=== PATIENT | female | born 1965 | race Caucasian/White ===

== ENCOUNTER 2020-05-08 08:36 | Emergency (ER) | payer OTHER ==
[2020-05-08] MEDS ORDERED: FAMOTIDINE 20 MG/2 ML VIAL IV ONE (09:57)
[2020-05-08] MEDS ORDERED: NA CHLORIDE 0.9% 1,000 ML ONE (09:57)
[2020-05-08] MEDS ORDERED: ONDANSETRON 4 MG/2 ML VIAL ONE (09:57)
[2020-05-08] MEDS ORDERED: MORPHINE 4 MG/ML SYR ONE (09:57)
[2020-05-08 10:08] LABS: Urine Blood 2+ (NEG); Urine Glucose NEGATIVE (NEG); Urine Protein TRACE (NEG); Urine pH 6.5 (5.0-7.0)
[2020-05-08 10:15] LABS: Absolute Lymphocytes (CBC) 1.8 K/uL (0.7-4.9); Hematocrit 43.1 % (36.0-45.0); MPV 8.4 fL (7.6-11.3); Protime INR 1.05; RBC Red Blood Cell Count 4.55 M/uL (3.86-4.86)
[2020-05-08 10:31] LABS: ALT/SGPT 14 U/L (12-78); AST/SGOT 22 U/L (15-37); Alkaline Phosphatase 86 U/L (45-117); BUN Blood Urea Nitrogen 13 mg/dL (7-18); Bicarbonate 28 mmol/L (21-32); Bilirubin Direct 0.3 mg/dL (0-0.2); Bilirubin Total 0.9 mg/dL (0.2-1.0); Glucose Level 106 mg/dL (74-106); Lipase 79 U/L (73-393); Magnesium 2.4 mg/dL (1.8-2.4); NT PRO-BNP 1769 pg/mL (<125); Potassium 3.3 mmol/L (3.5-5.1); Protein, Total 8.3 g/dL (6.4-8.2); Sodium Level 138 mmol/L (136-145); Troponin (Emerg Dept Use Only) < 0.02 ng/mL (0.0-0.045)
[2020-05-08] MEDS ORDERED: PROMETHAZINE INJ 25 MG/ML AMP ONE (10:42)
[2020-05-08] MEDS ORDERED: HYDROMORPHONE HCL 1 MG/ML INJ ONE (10:42)
--- NOTE | 2020-05-08 11:22 | RAD REPORT ---
EXAM DESCRIPTION: RAD - Chest Single View - 05/08/2020 10:14 am CLINICAL HISTORY: Cough;Abdominal distention COMPARISON: November 2015 chest exam TECHNIQUE: AP portable chest image was obtained 05/08/2020 10:14 am . FINDINGS: Lungs are clear. Interstitial markings match comparison Heart and vasculature are normal. No measurable pleural effusion and no pneumothorax. No acute bony abnormality seen. No acute aortic f indings suspected. IMPRESSION: No acute cardiopulmonary process. No significant change from comparison study.
--- NOTE | 2020-05-08 12:18 | RAD REPORT ---
EXAM DESCRIPTION: CT - Abdomen Pelvis W Contrast - 05/08/2020 12:01 pm CLINICAL HISTORY: ABD PAIN, vomiting COMPARISON: Abdomen Pelvis W Contrast dated 11/11/2015 TECHNIQUE: Biphasic, helical CT imaging of the abdomen and pelvis was performed following 100 ml non -ionic IV contrast. Oral contrast was administered. . All CT scans are performed using dose optimization technique as appropriate and may include automated exposure control or mA/KV adjustment according to patient size. FINDINGS: No suspicious findings in the lung bases. No focal hepatic parenchymal lesions. Doppler evaluation shows normal portal blood flow pattern. Ther e is nodular contour to the liver capsule. Trace amount of free fluid is present adjacent to the live r capsule with minimal fluid in the dependent portion of the pelvis. A few small varices are seen in the upper abdomen. No splenomegaly or focal splenic finding. No pancreatic abnormality. Gallbladder i s absent. Biliary tree within normal limits. Symmetric renal function is seen with no hydronephrosis or suspicious renal mass. No pyelonephritis o r acute parenchymal process. No bladder abnormalities. No adrenal abnormalities. No uterine abnormali ty. Ovaries are not clearly defined, isodense to the adjacent unopacified bowel. No gastric dilatation or gastric wall thickening. No dilated small bowel loops. No direct or indirect evidence for appendicitis. Green of the colon are mildly prominent. This is probably artifact of a d ecompressed state. A minimal colitis or enteritis would be possible. No free air or pneumatosis. No mass or bulky lymphadenopathy. No omental thickening. Patient has a right size supraumbilical hernia. Neck is 2 cm in diameter. Hernia is approximately 4-5 cm in maximu m diameter. This has enlarged since 2016. Prominent disc and bone degenerative changes are present. Anterior subluxation of L4 on L5 noted seco ndary to severe facet joint degenerative change. This creates bulging of disc material in the central canal. Bilateral foraminal stenosis present. IMPRESSION: Cirrhotic liver changes are present with no focal liver lesion. Minimal ascites present with upper abdominal varices present mild in severity. No surgically emergent abdomen or pelvis finding. No direct or indirect evidence for appendicitis. Green of the decompressed colon are mildly prominent. A mild nonspecific colitis cannot be excluded.
[2020-05-08 12:26] LABS: Barbiturates NEGATIVE (NEGATIVE); Benzodiazepines NEGATIVE (NEGATIVE); Cocaine NEGATIVE (NEGATIVE); METHAMPHETAM NEGATIVE (NEGATIVE); Methadone NEGATIVE (NEGATIVE); Opiates POSITIVE (NEGATIVE); Phencyclidine NEGATIVE (NEGATIVE); THC Cannibis NEGATIVE (NEGATIVE)
--- NOTE | 2020-05-08 13:11 | EDPHYS ---
Physician Documentation [facility] Name: Demetri Mock Age: 55 yrs Sex: Female : 1965 Arrival Date: 05/08/2020 Time: 08:38 Bed 17 Private MD: Clay Marrero ED Physician Fransisco Mathew HPI: 05/08 09:39 This 55 yrs old Female presents to ER via Wheelchair with complaints of diane Abdominal Pain, Liver Problem. 09:39 The patient presents with abdominal pain in the lower abdomen. Onset: The diane symptoms/episode began/occurred 2 day(s) ago. The patient presents to the emergency department with diarrhea, that is continuous, abdominal pain, of the right lower quadrant and left lower quadrant. Onset: The symptoms/episode began/occurred 2 day(s) ago. Possible causes: unknown. The symptoms are aggravated by nothing. The symptoms are alleviated by nothing. Associated signs and symptoms: Pertinent positives: fever. The symptoms do not radiate. Modifying factors: The symptoms are alleviated by nothing, the symptoms are aggravated by movement, pressure. Historical: - Allergies: 08:45 PENICILLINS; aa5 08:45 Latex, Natural Rubber; aa5 08:45 Lisinopril; aa5 - PMHx: 08:45 Anxiety; Chronic pain; COPD; Depression; Hypertension; Cirrhosis; aa5 - PSHx: 08:45 Cholecystectomy; aa5 - Immunization history:: Adult Immunizations up to date. - Social history:: Smoking status: Patient reports the use of cigarette tobacco products, unknown amount. - Family history:: not pertinent. ROS: 09:39 Constitutional: Negative for fever, chills, and weight loss, Eyes: Negative for injury, diane pain, redness, and discharge, ENT: Negative for injury, pain, and discharge, Neck: Negative for injury, pain, and swelling, Cardiovascular: Negative for chest pain, palpitations, and edema, Respiratory: Negative for shortness of breath, cough, wheezing, and pleuritic chest pain, Back: Negative for injury and pain, : Negative for injury, bleeding, discharge, and swelling, MS/Extremity: Negative for injury and deformity, Skin: Negative for injury, rash, and discoloration, Neuro: Negative for headache, weakness, numbness, tingling, and seizure, Psych: Negative for depression, anxiety, suicide ideation, homicidal ideation, and hallucinations, Allergy/Immunology: Negative for hives, rash, and allergies, Endocrine: Negative for neck swelling, polydipsia, polyuria, polyphagia, and marked weight changes, Hematologic/Lymphatic: Negative for swollen nodes, abnormal bleeding, and unusual bruising. 09:39 Abdomen/GI: Positive for abdominal pain, diarrhea, of the right lower quadrant and left lower quadrant. Exam: 09:39 Constitutional: This is a well developed, well nourished patient who is awake, alert, diane and in no acute distress. Head/Face: Normocephalic, atraumatic. Eyes: Pupils equal round and reactive to light, extra-ocular motions intact. Lids and lashes normal. Conjunctiva and sclera are non-icteric and not injected. Cornea within normal limits. Periorbital areas with no swelling, redness, or edema. ENT: Nares patent. No nasal discharge, no septal abnormalities noted. Tympanic membranes are normal and external auditory canals are clear. Oropharynx with no redness, swelling, or masses, exudates, or evidence of obstruction, uvula midline. Mucous membranes moist. Neck: Trachea midline, no thyromegaly or masses palpated, and no cervical lymphadenopathy. Supple, full range of motion without nuchal rigidity, or vertebral point tenderness. No Meningismus. Chest/axilla: Normal chest wall appearance and motion. Nontender with no deformity. No lesions are appreciated. Cardiovascular: Regular rate and rhythm with a normal S1 and S2. No gallops, murmurs, or rubs. Normal PMI, no JVD. No pulse deficits. Respiratory: Lungs have equal breath sounds bilaterally, clear to auscultation and percussion. No rales, rhonchi or wheezes noted. No increased work of breathing, no retractions or nasal flaring. Back: No spinal tenderness. No costovertebral tenderness. Full range of motion. Female : Normal external genitalia. Skin: Warm, dry with normal turgor. Normal color with no rashes, no lesions, and no evidence of cellulitis. MS/ Extremity: Pulses equal, no cyanosis. Neurovascular intact. Full, normal range of motion. Neuro: Awake and alert, GCS 15, oriented to person, place, time, and situation. Cranial nerves II-XII grossly intact. Motor strength 5/5 in all extremities. Sensory grossly intact. Cerebellar exam normal. Normal gait. Psych: Awake, alert, with orientation to person, place and time. Behavior, mood, and affect are within normal limits. 09:39 Abdomen/GI: Inspection: abdomen appears normal, Bowel sounds: normal, Palpation: mild abdominal tenderness, in the right lower quadrant and left lower quadrant, Liver: no appreciated palpable abnormalities, Hernia: not appreciated. Vital Signs: 08:45 BP 140 / 76; Pulse 60; Resp 16 S; Temp 98.6(O); Pulse Ox 99% on R/A; Weight 77.11 kg aa5 (R); Height 5 ft. 9 in. (175.26 cm) (R); Pain 8/10; 10:00 BP 134 / 95; Pulse 64; Resp 16; Pulse Ox 96% ; bp 11:00 BP 113 / 72; Pulse 58; Resp 15; Pulse Ox 97% ; zb 12:00 BP 103 / 66; Pulse 55; Resp 13; Pulse Ox 97% ; zb 13:30 BP 103 / 66; Pulse 56; Resp 14; Pulse Ox 95% ; bp 08:45 Body Mass Index 25.10 (77.11 kg, 175.26 cm) aa5 MDM: 08:48 Patient medically screened. diane 09:42 Differential diagnosis: Nonspecific abd pain, pancreatitis, bowel obstruction, diane diverticulitis, gastritis, Mesenteric ischemia or infarction, non-specific abd pain, pancreatitis, Pyelonephritis, urinary tract infection. Data reviewed: vital signs, nurses notes, lab test result(s), EKG, radiologic studies. Data interpreted: bus driver/monitor: rate is 60 beats/min, rhythm is regular, Pulse oximetry: on room air is 99 %. Test interpretation: by ED physician or midlevel provider: ECG, plain radiologic studies. Counseling: I had a detailed discussion with the patient and/or guardian regarding: the historical points, exam findings, and any diagnostic results supporting the discharge/admit diagnosis, lab results, radiology results, the need for outpatient follow up. 05/08 09:34 Order name: Basic Metabolic Panel; Complete Time: 11:29 diane 05/08 09:34 Order name: CBC with Diff; Complete Time: 11:29 diane 05/08 09:34 Order name: LFT's; Complete Time: 11:29 diane 05/08 09:34 Order name: Magnesium; Complete Time: 11:29 [facility] 05/08 09:34 Order name: NT PRO-BNP; Complete Time: 11:29 [facility] 05/08 09:34 Order name: PT-INR; Complete Time: 11:29 [facility] 05/08 09:34 Order name: Troponin (emerg Dept Use Only); Complete Time: 11:29 [facility] 05/08 09:34 Order name: Lipase; Complete Time: 11:29 [facility] 05/08 09:34 Order name: AMMONIA; Complete Time: 11:29 [facility] 05/08 09:34 Order name: Urine Culture [facility] 05/08 09:34 Order name: Lactate; Complete Time: 11:29 [facility] 05/08 09:34 Order name: Stool Culture [facility] 05/08 09:34 Order name: Fecal Leukocyte Stain; Complete Time: 11:29 [facility] 05/08 09:59 Order name: Urine Dipstick--Ancillary (enter results); Complete Time: 11:29 [facility] 05/08 09:34 Order name: XRAY Chest (1 view); Complete Time: 11:29 [facility] 05/08 09:34 Order name: EKG; Complete Time: 09:35 [facility] 05/08 09:34 Order name: Cardiac monitoring; Complete Time: 10:07 [facility] 05/08 09:34 Order name: EKG - Nurse/Tech; Complete Time: 10:16 [facility] 05/08 09:34 Order name: IV Saline Lock; Complete Time: 10:07 [facility] 05/08 09:34 Order name: Labs collected and sent; Complete Time: 10:07 [facility] 05/08 09:34 Order name: O2 Per Protocol; Complete Time: 10:07 [facility] 05/08 09:34 Order name: CT Abd/Pelvis - PO and IV Contrast; Complete Time: 12:48 [facility] 05/08 09:59 Order name: Urine --Ancillary (enter results); Complete Time: 11:29 [facility] 05/08 11:12 Order name: UDS; Complete Time: 12:48 [facility] 05/08 09:34 Order name: O2 Sat Monitoring; Complete Time: 10:07 [facility] 05/08 09:34 Order name: Urine Dipstick-Ancillary (obtain specimen); Complete Time: 09:56 [facility] 05/08 13:07 Order name: PO challenge: juice; Complete Time: 13:11 [facility] Administered Medications: 09:55 Drug: NS 0.9% 1000 ml Route: IV; Rate: 1 bolus; Site: left forearm; bp 13:37 Follow up: IV Status: Completed infusion; IV Intake: 1000ml bp 09:55 Drug: morphine 4 mg Route: IVP; Site: left forearm; bp 10:36 Follow up: Response: Pain is decreased bp 09:55 Drug: Zofran (Ondansetron) 4 mg Route: IVP; Site: left forearm; bp 10:36 Follow up: Response: Nausea is decreased bp 09:55 Drug: Pepcid 20 mg Route: IVP; Site: left forearm; bp 10:37 Follow up: Response: Nausea is decreased bp 10:30 Drug: Dilaudid 1 mg Route: IVP; Site: left forearm; bp 12:07 Follow up: Response: Pain is decreased zb 10:30 Drug: Phenergan 12.5 mg Route: IVP; Site: left forearm; bp 12:07 Follow up: Response: Nausea is decreased zb Disposition: 05/08/20 13:10 Discharged to Home. Impression: Left sided colitis with other complication, Ascites, Unspecified cirrhosis of liver, Hypokalemia, Chronic obstructive pulmonary disease, unspecified, Tobacco use, Tobacco abuse counseling. - Condition is Stable. - Discharge Instructions: Ascites, Chronic Bronchitis, Potassium Content of Foods, Steps to Quit Smoking, Smoking Hazards, Chronic Obstructive Pulmonary Disease Exacerbation, Steps to Quit Smoking, [id number], Cough, Adult, [id number], Hypokalemia, Colitis. - Prescriptions for Flagyl 500 mg Oral Tablet - take 1 tablet by ORAL route every 12 hours for 7 days; 14 tablet. Pepcid 20 mg Oral Tablet - take 1 tablet by ORAL route every 12 hours for 10 days; 20 tablet. Zofran 4 mg Oral Tablet - take 1 tablet by ORAL route every 12 hours As needed; 20 tablet. Cipro 500 mg Oral Tablet - take 1 tablet by ORAL route every 12 hours for 7 days; 14 tablet. Bentyl 20 mg Oral Tablet - take 1 tablet by ORAL route every 6 hours As needed; 20 tablet. Albuterol Sulfate 90 mcg/actuation - inhale 1-2 puff by INHALATION route every 4-6 hours; 1 Inhaler. - Medication Reconciliation Form, Thank You Letter, Antibiotic Education, Prescription Opioid Use form. - Follow up: Clay Marrero MD; When: 2 - 3 days; Reason: Recheck today's complaints, Continuance of care, Re-evaluation by your physician. Follow up: West Lopez MD; When: 2 - 3 days; Reason: Recheck today's complaints, Continuance of care, Re-evaluation by your physician. - Problem is new. - Symptoms have improved. Signatures: Dispatcher [employer] EDMS Fransisco Mathew MD MD cha Calderon, Audri RN RN aa5 Natanael Packer RN RN Janay Jensen RN zb Corrections: (The following items were deleted from the chart) 13:38 13:10 05/08/2020 13:10 Discharged to Home. Impression: Left sided colitis with other bp complication; Ascites; Unspecified cirrhosis of liver; Hypokalemia; Chronic obstructive pulmonary disease, unspecified; Tobacco use; Tobacco abuse counseling. Condition is Stable. Forms are Medication Reconciliation Form, Thank You Letter, Antibiotic Education, Prescription Opioid Use. Follow up: Clay Marrero; When: 2 - 3 days; Reason: Recheck today's complaints, Continuance of care, Re-evaluation by your physician. Follow up: West Lopez; When: 2 - 3 days; Reason: Recheck today's complaints, Continuance of care, Re-evaluation by your physician. Problem is new. Symptoms have improved. diane
--- NOTE | 2020-05-08 13:11 | ER ---
Nurse's Notes [facility] Name: Demetri Mock Age: 55 yrs Sex: Female : 1965 Arrival Date: 05/08/2020 Time: 08:38 Bed 17 Private MD: Clay Marrero Diagnosis: Left sided colitis with other complication;Ascites;Unspecified cirrhosis of liver;Hypokalemia;Chronic obstructive pulmonary disease, unspecified;Tobacco use;Tobacco abuse counseling Presentation: 05/08 08:45 Chief complaint: Patient states: lower abd pain for approximately 1 week ago. Pt states aa5 "I was seen at [facility] and got diagnosed with Cirrhosis of the liver and they gave me Miralax but I keep throwing it up and I also haven't been eating since because food makes me gag". Pt also reports temperature at home was 99.8*F. 08:45 Coronavirus screen: Client denies travel out of the [place] in the last 14 days. At this aa5 time, the client does not indicate any symptoms associated with coronavirus-19. Pt reports baseline cough. Ebola Screen: Patient negative for fever greater than or equal to 101.5 degrees Fahrenheit, and additional compatible Ebola Virus Disease symptoms. Initial Sepsis Screen: Does the patient meet any 2 criteria? No. Patient's initial sepsis screen is negative. Does the patient have a suspected source of infection? No. Patient's initial sepsis screen is negative. Risk Assessment: Do you want to hurt yourself or someone else? Patient reports no desire to harm self or others. Onset of symptoms was April 2020. 08:45 Acuity: ALICJA 3 aa5 08:45 Method Of Arrival: Wheelchair aa5 Triage Assessment: 08:45 General: Appears distressed, uncomfortable, Behavior is cooperative, appropriate for bp age, anxious. Pain: Complains of pain in abdomen. EENT: No deficits noted. Neuro: Level of Consciousness is awake, alert, obeys commands, Oriented to person, place, time, situation, Appropriate for age. Cardiovascular: No deficits noted. Respiratory: No deficits noted. GI: Reports lower abdominal pain, nausea, vomiting. : No signs and/or symptoms were reported regarding the genitourinary system. Derm: No deficits noted. Musculoskeletal: No deficits noted. Historical: - Allergies: 08:45 PENICILLINS; aa5 08:45 Latex, Natural Rubber; aa5 08:45 Lisinopril; aa5 - PMHx: 08:45 Anxiety; Chronic pain; COPD; Depression; Hypertension; Cirrhosis; aa5 - PSHx: 08:45 Cholecystectomy; aa5 - Immunization history:: Adult Immunizations up to date. - Social history:: Smoking status: Patient reports the use of cigarette tobacco products, unknown amount. - Family history:: not pertinent. Screenin:45 Abuse screen: Denies threats or abuse. Denies injuries from another. Nutritional bp screening: No deficits noted. Tuberculosis screening: No symptoms or risk factors identified. Fall Risk None identified. Assessment: 08:45 General: SEE TRIAGE NOTE. GI: Bowel sounds present X 4 quads. Abd is soft X 4 quads. bp 10:00 Reassessment: No changes from previously documented assessment. Patient and/or family bp updated on plan of care and expected duration. Pain level reassessed. Patient is alert, oriented x 3, equal unlabored respirations, skin warm/dry/pink. PT DRINKING PO CONTRAST. 10:37 Reassessment: PT COMPLETED PO CONTRAST, CT NOTIFIED. bp 12:00 Reassessment: No changes from previously documented assessment. Patient and/or family zb updated on plan of care and expected duration. Pain level reassessed. Patient is alert, oriented x 3, equal unlabored respirations, skin warm/dry/pink. PT RETURNED FROM CT. 13:35 Reassessment: PT D/C HOME AMBULATORY WITH FAMILY, DX WITH LEFT SIDED COLITIS AND COPD. bp Vital Signs: 08:45 BP 140 / 76; Pulse 60; Resp 16 S; Temp 98.6(O); Pulse Ox 99% on R/A; Weight 77.11 kg aa5 (R); Height 5 ft. 9 in. (175.26 cm) (R); Pain 8/10; 10:00 BP 134 / 95; Pulse 64; Resp 16; Pulse Ox 96% ; bp 11:00 BP 113 / 72; Pulse 58; Resp 15; Pulse Ox 97% ; zb 12:00 BP 103 / 66; Pulse 55; Resp 13; Pulse Ox 97% ; zb 13:30 BP 103 / 66; Pulse 56; Resp 14; Pulse Ox 95% ; bp 08:45 Body Mass Index 25.10 (77.11 kg, 175.26 cm) [facility] ED Course: 08:38 Patient arrived in ED. ag5 08:38 Clay Marrero MD is Private Physician. 5 08:45 Natanael Packer, RN is Primary Nurse. bp 08:45 Arm band placed on Patient placed in an exam room, on a stretcher. aa5 08:45 Patient has correct armband on for positive identification. Bed in low position. Call bp light in reach. Side rails up X2. Adult w/ patient. 08:47 Fransisco Mathew MD is Attending Physician. [facility] 08:57 Triage completed. [facility] 09:55 Inserted saline lock: 20 gauge in left forearm, using aseptic technique. Blood bp collected. 09:56 Stool Culture Sent. [facility] 09:56 Fecal Leukocyte Stain Sent. [facility] 09:56 Urine Culture Sent. [facility] 09:57 Urine collected: clean catch specimen, tea colored, EKG done, by ED staff, reviewed by [facility] Fransisco Mathew MD. 10:13 XRAY Chest (1 view) In Process Unspecified. EDGA 10:16 EKG done. [facility] 12:01 CT Abd/Pelvis - PO and IV Contrast In Process Unspecified. EDMS 13:08 Clay Marrero MD is Referral Physician. diane 13:08 West Lopez MD is Referral Physician. [facility] 13:36 No provider procedures requiring assistance completed. IV discontinued, intact, bp bleeding controlled, No redness/swelling at site. Pressure dressing applied. Administered Medications: 09:55 Drug: NS 0.9% 1000 ml Route: IV; Rate: 1 bolus; Site: left forearm; bp 13:37 Follow up: IV Status: Completed infusion; IV Intake: 1000ml bp 09:55 Drug: morphine 4 mg Route: IVP; Site: left forearm; bp 10:36 Follow up: Response: Pain is decreased bp 09:55 Drug: Zofran (Ondansetron) 4 mg Route: IVP; Site: left forearm; bp 10:36 Follow up: Response: Nausea is decreased bp 09:55 Drug: Pepcid 20 mg Route: IVP; Site: left forearm; bp 10:37 Follow up: Response: Nausea is decreased bp 10:30 Drug: Dilaudid 1 mg Route: IVP; Site: left forearm; bp 12:07 Follow up: Response: Pain is decreased zb 10:30 Drug: Phenergan 12.5 mg Route: IVP; Site: left forearm; bp 12:07 Follow up: Response: Nausea is decreased zb Intake: 13:37 IV: 1000ml; Total: 1000ml. bp Outcome: 13:10 Discharge ordered by . diane 13:36 Discharged to home ambulatory, with family. bp 13:36 Condition: stable 13:36 Discharge instructions given to patient, Instructed on discharge instructions, follow up and referral plans. medication usage, Demonstrated understanding of instructions, follow-up care, medications, Prescriptions given X 6 13:38 Patient left the ED. bp Signatures: Dispatcher [employer] EDMS Fransisco Mathew MD MD cha Calderon, Audri, RN RN Kate Navarro Brian RN RN Tequila Phipps [place], RN RN althea
[2020-05-12 00:41] VITALS: TEMP 98.6
[2020-05-12 00:44] VITALS: BP 103/66
[2020-05-12 00:46] VITALS: O2SAT 95
== END 2020-05-08 13:38 | disposition home or self-care (01) ==
LOC: ER 08:36
DX: K51.518 Left sided colitis with other complication (principal); K74.60 Unspecified cirrhosis of liver; R18.8 Other ascites; E87.6 Hypokalemia; J44.9 Chronic obstructive pulmonary disease, unspecified; Z72.0 Tobacco use; Z71.6 Tobacco abuse counseling
CPT/HCPCS: 96361; 93005; 87088; 87045; 85025; 87086; 80048; 36415; 82140; 83735; 89055; 81025; 85610; 80076; 87046; 80307 ×8; 83605; 81003; 84484; 83690; 83880; 74177; 71045; 96375; 96374; 99284; Q9967; J2550; J1170; J7030; J2405